=== PATIENT | male | born 1950 | race Caucasian/White ===

== ENCOUNTER → 2019-09-25 | Outpatient (CLI) | payer BC, MEDICARE ==
--- NOTE | 2019-09-25 07:35 | RAD ---
EXAM: Kwon scale and color Doppler renal artery sonogram. HISTORY: Hypertension. TECHNIQUE: Kwon scale and color Doppler sonographic imaging of the kidneys with spectral waveform analysis was performed. COMPARISON: None. FINDINGS: The kidneys are normal in size. No solid or cystic renal lesion is seen. There is no hydronephrosis. There are normal peak systolic velocities within the bilateral renal arteries, measuring 63 cm/s on the right and 99 cm/s on the left. There are normal renal artery to aorta velocity ratios. IMPRESSION: 1. Unremarkable grayscale evaluation of the kidneys. 2. No Doppler evidence of greater than 60 percent stenosis involving the renal arteries. Electronically signed by: Amy Crawley MD (09/25/2019 7:32 AM) [id number]
== END | disposition home or self-care (01) ==
LOC: US 06:28
PROVIDERS: ATTEND Family Medicine
DX: I10 Essential (primary) hypertension (principal)
CPT/HCPCS: 93975

== ENCOUNTER → 2019-10-07 | Outpatient (CLI) | payer BC, MEDICARE ==
--- NOTE | 2019-10-07 12:03 | CARD ---
MR#: [id number] Date of Study: 10/07/2019 Ordering Physician: ROCÍO FOX, Referring Physician: ROCÍO FOX, Tech: APPROVED REPORT PROCEDURE: Successful implantation of Biotronik Biomonitor III loop recorder INDICATIONS: Stroke of uncertain etiology r/o atrial fibrillation PROCEDURE DETAILS: An informed consent was obtained from patient. Patient was brought to the procedure suite and his le ft chest and shoulder were prepped and draped in the usual fashion. 20 mL of 2% lidocaine was infilt rated into the skin and subcutaneous tissues for local anesthesia. An incision was made in the left third intercostal space 1 inch from midsternal line and using the introducer/deployer provided with Qompium kit a track was created in subcutaneous tissue and a Biotronik Biomonitor III loop recorder serial number [id number] was placed in the subcutaneous tissue. The incision was closed with steristrips He mostasis was secured. Patient tolerated the procedure well. There were no immediate complications. At the end of procedure, the device showed sensing amplitude of 2 mV. CONCLUSION: Successful implantation of Biotronik Biomonitor III loop recorder for stroke of uncertain etiology to rule out any significant arrhythmias. Signed by : Rocío Fox, Electronically Approved : 10/07/2019 12:03:35
== END ==
LOC: LINQ 11:20
PROVIDERS: ATTEND Internal Medicine Cardiovascular Disease
DX: I48.91 Unspecified atrial fibrillation (principal); I63.9 Cerebral infarction, unspecified
CPT/HCPCS: 33285; C1764

== ENCOUNTER → 2020-07-21 | Day surgery (SDC) | payer BC, MEDICARE ==
[~2020-07-21] MED LIST: AMLO-187 PO; ATOR40TA PO; IV RINGERS,LACTATED 1000ML 1,000 ML IV SCH; MELO15TA6 PO; METF10007 PO; METO10TA81 PO; NAPR220T70 PO; PROPOFOL 10 MG/ML (20ML) VIAL. IV ONE; QUIN10TA15 PO
--- NOTE | 2020-07-21 13:13 | PDOC1 ---
History and Physical Date of Admission Date of Admission DATE: 07/21/20 TIME: 13:04 Identification/Chief Complaint Chief Complaint Colon cancer screening Source Source: Chart review, Patient History of Present Illness History of Present Illness 69 y/o male here for screening colonoscopy. Had colonoscopy >10 years ago; recalls "diverticulosis". Denies D, C, overt bleeding. Wt/appetite OK. No GIFH. No abdominal pain. Denies heartburn, dysphagia, PUD, or pancreatic history. H/o hepatic steatosis. No tobacco use. Usually daily alcohol in modest amounts. Has taken meloxicam. Past Medical History Cardiovascular: HTN CENTRAL NERVOUS SYSTEM: CVA (uncertain source/minimal residual) Psych: Anxiety Endocrine: Diabetes (tupe 2) Past Surgical History Past Surgical History: Other (Implantation of loop recorder) Family History Family History: Other (Father had diabetes.) Social History Smoke: No ALCOHOL: other (Some amount daily.) Drugs: None Current Medications Current Medications Current Medications Ringer's Solution 1,000 ml @ 50 mls/hr Q20H IV ; Start 07/21/20 at 12:45; Stop 07/22/20 at 00:44; Status UNV Active Scripts Active Reported Mobic (Meloxicam) 15 Mg Tablet 15 Mg PO DAILY Metformin Hcl 1,000 Mg Tablet 1,000 Mg PO DAILYWBKFT Reglan (Metoclopramide Hcl) 10 Mg Tablet 10 Mg PO QIDACHS (?) Lipitor (Atorvastatin Calcium) 40 Mg Tablet 40 Mg PO HS(?) Quinapril Hcl 10 Mg Tablet 10 Mg PO DAILY Amlodipine Besylate 10 Mg Tablet 10 Mg PO DAILY Allergies Allergies: Coded Allergies: No Known Drug Allergies (Unverified , 07/21/20) ROS Review of System Otherwise negative. Physical Exam General: Alert, Oriented X3, Cooperative, No acute distress HEENT: PERRLA, EOMI Lungs: Clear to auscultation Heart: S1S2, RRR, no gallops, no murmurs, other (loop recorder left infraclavicular area) Abdomen: Normal bowel sounds, Soft, No tenderness, No hepatosplenomegaly, No ma sses Rectal Exam: deferred (to time of procedure) Extremities: No cyanosis, No edema Skin: No significant lesion Neuro: Normal speech, Strength at 5/5 X4 ext, Normal tone, Sensation intact, Cranial nerves 3-12 NL, Reflexes 2+ Psych/Mental Status: Mental status NL, Mood NL Vitals Vitals Vital Signs Date Time Temp Pulse Resp B/P (MAP) Pulse Ox O2 Delivery O2 Flow Rate FiO2 07/21/20 12:54 62 20 97 VTE Prophylaxis Ordered VTE Prophylaxis Devices: No VTE Pharmacological Prophylaxi: No Assessment/Plan Assessment/Plan IMP: Appears historically at average risk for CRC. PLAN: Screening colonoscopy. JEWELL LEON MD Jul 21, 2020 13:13
--- NOTE | 2020-07-21 13:45 | PDOC4 ---
PROCEDURE Procedure Colonoscopy with biopsies Indication: Screening. Meds: per anesthesia Findings: REVA--normal. --'Scope advanced t cecum. Mucosa normal. Prep adequate. One diverticulum seen in transverse. 2, 2mm polyps in rectum, biopsied off. Internal hemorrhoids on retroflex. Kemi. well. IMP: Rectal polyps Diverticulosis Internal hemorrhoids. REC: Await path. Resume meds and diet. F/u in 2 weeks. JEWELL LEON MD Jul 21, 2020 13:45
[2020-07-21 14:30] VITALS: BP 178/100
--- NOTE | 2020-07-23 15:12 | PATHOLOGY ---
[facility] Accession Number: [id number] . 01 Material submitted: . rectum - RECTAL POLYP . 01 Clinical history: . COLORECTAL CANCER SCREEN COLON ABDOMINAL PAIN . 02 Diagnosis: Colorectal biopsies, rectal polyps: - Hyperplastic polyps. (TERESA:heather; 07/23/2020) [facility] 07/23/2020 1013 Local . 02 Comment: There are no adenomatous changes or evidence of malignancy. (TERESAM:heather; 07/23/2020) . 02 Electronically signed: . Wiliam Marc MD, Pathologist NPI- [id number] . 01 Gross description: . The specimen is received in formalin, labeled "Ryan Mast, rectal polyp". Received are two segments of pale dorado tissue measuring 0.3 and 0.4 cm in maximum dimensions. The specimen is submitted entirely in cassette A1. ([facility]; 07/22/2020) Q[facility]/QAC 07/22/2020 1301 Local . 02 Pathologist provided ICD-10: K62.1 . 02 CPT . 234685 Specimen Comment: A courtesy copy of this report has been sent to [phone] Specimen Comment: Report sent to Performed at: 01 [facility] [address], [place] [id number] MD Tutu Lamar MD Phone: [phone] Performed at: 02 [facility] [place] [address] [place], [place] [id number] MD Wiliam Marc MD Phone: [phone]
== END | disposition home or self-care (01) ==
LOC: ENDOS 12:25
PROVIDERS: ATTEND Internal Medicine Gastroenterology
DX: R10.9 Unspecified abdominal pain (principal); K64.0 First degree hemorrhoids; K57.30 Diverticulosis of large intestine without perforation or abscess without bleeding; K62.1 Rectal polyp; K63.89 Other specified diseases of intestine; I10 Essential (primary) hypertension; E78.00 Pure hypercholesterolemia, unspecified; M19.90 Unspecified osteoarthritis, unspecified site; K21.9 Gastro-esophageal reflux disease without esophagitis; E11.9 Type 2 diabetes mellitus without complications; I25.10 Atherosclerotic heart disease of native coronary artery without angina pectoris; N40.0 Benign prostatic hyperplasia without lower urinary tract symptoms; Z79.899 Other long term (current) drug therapy; Z79.84 Long term (current) use of oral hypoglycemic drugs; Z98.890 Other specified postprocedural states; Z20.822 Contact with and (suspected) exposure to COVID-19
CPT/HCPCS: 45380; 87426; 88305; J2704

== ENCOUNTER → 2020-11-09 | Outpatient (CLI) | payer BC, MEDICARE ==
[2020-07-21 14:30] VITALS: BP 178/100
[~2020-11-09] MED LIST changes: -IV RINGERS,LACTATED 1000ML 1,000 ML IV SCH; -PROPOFOL 10 MG/ML (20ML) VIAL. IV ONE
--- NOTE | 2020-11-09 15:41 | RAD ---
MR LUMBAR SPINE WO [id number] History: Reason: low back pain with left sided radiculopathy / Spl. Instructions: / History: Technique: Multiplanar, multi sequential MR imaging was performed of the lumbar spine. Comparison: None Findings: Moderate leftward curvature of the lumbar spine centered at L2-L3. Normal vertebral body height. No a cute fracture. Mild degenerative endplate edema L2-L3. Slight grade 1 anterolisthesis L5 on S1. Conus terminates at the normal location. No evidence of nerve root clumping. Sacral Tarlov cyst. T12-L1: Left foraminal disc protrusion. Minimal left neuroforaminal narrowing. No canal narrowing. L1-L2: Small disc bulge. No canal narrowing. Small left foraminal disc protrusion. Minimal left neur oforaminal narrowing. L2-L3: Broad-based disc bulge. Subarticular recess narrowing. No canal narrowing. Mild facet arthrop athy. Mild to moderate right neuroforaminal narrowing. Mild left neuroforaminal narrowing. L3-L4: Broad-based disc bulge. Moderate facet arthropathy. No canal narrowing. Left foraminal disc p rotrusion. Mild left neuroforaminal narrowing. L4-L5: Central disc bulge with annular fissure. Moderate facet arthropathy, left greater than right. Minimal canal narrowing. Subarticular recess narrowing. Mild left neuroforaminal narrowing. L5-S1: Anterolisthesis. Disc bulge. Advanced facet arthropathy, right greater than left. No canal na rrowing. Mild left neuroforaminal narrowing. Impression: 1. Moderate multilevel lumbar spondylosis with leftward curvature. 2. Multilevel neuroforaminal narrowing. Electronically signed by: George Block DO (11/09/2020 3:38 PM) [place] [id number]
== END ==
LOC: MRI 14:09
PROVIDERS: ATTEND Family Medicine
DX: M47.817 Spondylosis without myelopathy or radiculopathy, lumbosacral region (principal); M48.07 Spinal stenosis, lumbosacral region; M51.17 Intervertebral disc disorders with radiculopathy, lumbosacral region; M43.8X6 Other specified deforming dorsopathies, lumbar region; M48.05 Spinal stenosis, thoracolumbar region; M51.15 Intervertebral disc disorders with radiculopathy, thoracolumbar region; M43.17 Spondylolisthesis, lumbosacral region; G96.191 Perineural cyst
CPT/HCPCS: 72148

== ENCOUNTER → 2020-12-14 | Outpatient (CLI) | payer BC, MEDICARE ==
[2020-07-21 14:30] VITALS: BP 178/100
[~2020-12-14] MED LIST changes: +CHOL10004 PO; +CYAN-25 PO; +IOHEXOL 180 MG/ML 10 ML VIAL. ONE; +MAGN250T10 PO; +QUIN40TA16 PO; +methylPREDNISolone ACETATE 80 MG/ML VIAL. ONE
--- NOTE | 2020-12-14 12:39 | PDOC4 ---
Procedure Note: ICD 10 Code: ICD 10 Code: M54.16 M 48.06 M51.36 Procedure Note: Patient was consented for lumbar epidural steroid injection with fluoroscopic guidance. Risks were discussed including but not limited to: Bleeding, infection, possibility of epidural hematoma and subsequent neurological compromise, dural puncture, headaches, spinal cord and/or nerve damage, side effects of steroid medication, and poor results regarding pain control. Patient understands and wished to proceed. Procedure is lumbar epidural steroid injection under local anesthetic using yoly rile prep and drape at the L4-5 level using C-arm fluoroscopic guidance in both AP and lateral views medications injected is 120 mg Depo-Medrol +10mL preservative-free normal saline and 2 mL contrast- condition at discharge is stable patient tolerated procedure well had no complications. STEPHANIE ENCINAS MD Dec 14, 2020 12:39
--- NOTE | 2020-12-14 12:39 | PDOC1 ---
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 Patient reports is a burning aching pain this level as well. Patient reports the pain awakens him from sleep about 3 times a night does not affect his bowel bladder control or his ability to walk mostly noticeable with standing still or stand for prolonged periods or sitting for prolonged periods patient reports has had physical therapy as well as chiropractic in the past all which helped only temporarily he is taking arthritis strength Tylenol currently, which does help but only by about 40% or so patient rates his disability rating 0-10 10 me the worst is a 3 with family home responsibilities social activity occupation sexual behavior and life support activities 5 with recreational activities and 1 with self-care activities. Patient had MRI scan of the lumbar spine showing moderate multilevel lumbar spondylosis with broad-based disc bulges L2-3 L3-4 central disc bulge at L4-5 with annular fissure left greater than right facet arthropathy and subarticular recess narrowing with minimal canal narrowing mild left neuroforaminal narrowing L5-S1 shows advanced facet arthropathy right greater than left without canal narrowing with a mild left neuroforaminal narrowing. L3-4 shows left foraminal disc protrusion with mild left neuroforaminal narrowing as well. PAST MEDICAL HISTORY: PMH: Type 2 diabetes, hypertension, arthritis, esophageal reflux, subclavian artery stenosis PREVIOUS SURGERIES: Past Surgical Hx: Appendectomy CURRENT MEDICATIONS: Current Meds: Active Scripts Medications Dose Route/Sig Max Daily Dose Days Date Category Dose Instructions Magnesium (Magnesium Oxide) 250 Mg Tablet 1 Tab PO DAILY 30 12/14/20 Reported Vitamin B-12 (Cyanocobalamin (Vitamin B-12)) 1,000 Mcg Tablet 1 Tab PO DAILY 30 12/14/20 Reported Vitamin D3 (Vitamin D) 25 Mcg Tablet 50 Mcg PO DAILY 12/14/20 Reported 1,000 UNITS = 25 MCG Quinapril Hcl 40 Mg Tablet 1 Tab PO DAILY 30 12/14/20 Reported Mobic (Meloxicam) 15 Mg Tablet 15 Mg PO DAILY 07/21/20 Reported Metformin Hcl 1,000 Mg Tablet 1,000 Mg PO BID 07/21/20 Reported Reglan (Metoclopramide Hcl) 10 Mg Tablet 10 Mg PO QIDACHS 07/21/20 Reported Amlodipine Besylate 10 Mg Tablet 10 Mg PO DAILY 07/21/20 Reported ALLERGIES; Allergies: Coded Allergies: No Known Drug Allergies (Unverified , 07/21/20) FAMILY HISTORY: Family Hx: Heart disease SOCIAL HISTORY: Social Hx: Patient drinks 3-4 beers maybe 3-4 times a week does not smoke says any illegal illicit or recreational drugs does use chewing tobacco is lives with his spouse and a stepson who is living with him he is currently retired from [employer]. REVIEW OF SYSTEMS: ROS: Positive for those items mentioned in history of present illness, all systems are reviewed, otherwise negative ,and are complete full and well-documented on patient's chart. PHYSICAL EXAM: VS: Blood pressure is 137/87 pulse 59 respiration 16 temperature 97.9 F height is 5 foot 11 inches weight is 167 pounds PE: PHYSICAL EXAMINATION: GENERAL: The patient is awake, alert, oriented, appropriate, very pleasant in demeanor. HEENT: Shows normocephalic, atraumatic. Extraocular movements are intact and symmetrical. Oral cavity: Mucous membranes moist and pink. Dentition is intact. NECK: Shows anterior throat supple without palpable lymphadenopathy noted. Swallow reflex symmetrical. CHEST: Shows normal on inspection. Breath sounds are clear bilaterally, no rales rhonchi or wheezes auscultated. HEART: Shows S1, S2 clear. No murmurs auscultated. ABDOMEN: Soft, nontender, nondistended. No palpable organomegaly is noted. BACK: Shows spine grossly in the midline. Normal-appearing cervical lordotic curvature. There is slightly increased thoracic kyphosis, some flattening of the lumbar lordotic curvature. Lumbar paraspinous muscles show symmetrical on inspection, on palpation shows some moderate tenderness diffusely throughout the upper, middle and lower distribution of the paraspinous muscles bilaterally and also into the lower thoracic paraspinous musculature, firm and tender, but without specific trigger points, without radiation of pain. The patient has goo d rotational motion of the lumbar spine, both laterally as well as extension and flexion without significant difficulty. No tenderness over the spinous processes, sacrum or sacroiliac regions. EXTREMITIES: Lower extremities show deep tendon reflexes 2+ in the patellar and tendo calcaneus tendons. Motor exam is 5 on a scale of 5 with right dorsiflexion, extension, quadriceps and hamstring flexion and 5/5 on the left. Peripheral pulses are 1+ posterior tibial. No peripheral edema is noted bilaterally. Lower extremities are warm and dry to touch, equal in color and appearance. Straight leg raise noted to be negative bilaterally. Gaenslen's and Jim's maneuvers are negative bilateral as well. The patient is able to stand, stand on his toes that significant difficulty loss of balance, walks with a normal-appearing gait some appear to favor the right or left lower extremity significantly is not use any assistive devices to ambulate. SKIN: Shows warm and dry, good turgor. No edema. No sores, rashes or bruising throughout. IMPRESSION: Impression: 70-year-old male with long history approximately 3 years increasing pain low back right lower extremity radicular fashion MRI scan lumbar spine as noted Hypertension Arthritis Type 2 diabetes Plan: Discussed with the patient including conservative management continued physical therapies and interventional techniques. Patient would like to pursue interventional techniques. We discussed a lumbar epidural steroid injections description as well as anatomical models to describe the procedure. Risks were discussed including but not limited to: Bleeding, infection, possibility of epidural hematoma and subsequent neurological compromise, dural puncture, headaches, spinal cord and/or nerve damage, side effects of steroid medication, and poor results regarding pain control. Patient understands and wished to proceed. Patient will return to clinic in approximately 2 weeks for follow-up, was counseled to return appointment, typical, and side effects to be aware of. Procedure is lumbar epidural steroid injection under local anesthetic using sterile prep and drape at the L4-5 level using C-arm fluoroscopic guidance in both AP and lateral views medications injected is 120 mg Depo-Medrol +10mL preservative-free normal saline and 2 mL contrast- condition at discharge is stable patient tolerated procedure well had no complications. STEPHANIE ENCINAS MD Dec 14, 2020 12:39
== END | disposition home or self-care (01) ==
LOC: PNCL 10:16
PROVIDERS: ATTEND Anesthesiology
DX: M51.16 Intervertebral disc disorders with radiculopathy, lumbar region (principal); M48.061 Spinal stenosis, lumbar region without neurogenic claudication; M79.604 Pain in right leg; I10 Essential (primary) hypertension; E11.9 Type 2 diabetes mellitus without complications; M19.90 Unspecified osteoarthritis, unspecified site; K21.9 Gastro-esophageal reflux disease without esophagitis; I25.10 Atherosclerotic heart disease of native coronary artery without angina pectoris; E78.00 Pure hypercholesterolemia, unspecified; N40.0 Benign prostatic hyperplasia without lower urinary tract symptoms; Z79.84 Long term (current) use of oral hypoglycemic drugs; Z79.899 Other long term (current) drug therapy; Z98.890 Other specified postprocedural states; Z72.89 Other problems related to lifestyle
CPT/HCPCS: 62323; J1040; Q9965; 62322

== ENCOUNTER → 2021-03-03 | Outpatient (CLI) | payer BC, MEDICARE ==
[2020-07-21 14:30] VITALS: BP 178/100
[~2021-03-03] MED LIST changes: +methylPREDNISolone ACETATE 40 MG/ML VIAL. ONE
--- NOTE | 2021-03-03 10:56 | PDOC ---
Progress Note - Pain Clinic Date of Service: DOS: DATE: 03/03/21 TIME: 10:53 Diagnosis: Dx: Lumbar radiculopathy with lumbar degenerative disease and lumbar spondylosis History or Present Illness: HPI: 70-year-old male returns in follow-up status post lumbar epidural steroid injection x1 last seen December 14, 2020. Patient reports by 90% improvement for the first month or so the pain returning gradually in the low back and right lower extremity patient reports his right posterior gluteus lateral thigh anterior thigh medial thigh and across the low back patient reports a 7 on scale 10 is worse over the past week 7 on average 5 its least is a 7 today patient reports aching burning constant can be unbearable with standing walking for prolonged periods patient reports also new finding of right shoulder pain posteriorly coming up in about the past 2 months or so not the result of any injury or accident that he is aware but very significant pain in the right posterior shoulder patient is been putting heat on it and stretching but without significant decrease in pain. Patient reports better at night in both areas of the low back and the right shoulder and does not generally awaken her from sleep at night. Patient reports no bowel or bladder incontinence. Physical Exam: VS: Blood pressure is 144/83 pulse 59 respirations 18 temperature 97 F is 5 feet 11 inches weight is 182 pounds PE: PHYSICAL EXAMINATION: GENERAL: The patient is awake, alert, oriented, appropriate, very pleasant in demeanor HEENT: Shows normocephalic, atraumatic. Extraocular movements are intact and symmetrical. Oral cavity: Mucous membranes moist and pink. Dentition is intact. NECK: Shows anterior throat supple without palpable lymphadenopathy noted. S wallow reflex symmetrical. CHEST: Shows normal on inspection. Breath sounds are clear bilaterally, distant no rales rhonchi wheezes auscultated. HEART: Shows S1, S2 clear. No murmurs auscultated. ABDOMEN: Soft, nontender, nondistended. No palpable organomegaly is noted. No rebound or guarding demonstrated. BACK: Shows spine grossly in the midline. Normal-appearing cervical lordotic curvature. There is slightly increased thoracic kyphosis, some minor flattening of the lumbar lordotic curvature. Lumbar paraspinous muscles show symmetrical on inspection, on palpation shows some moderate tenderness diffusely throughout the upper, middle and lower distribution of the paraspinous muscles without specific trigger points, without radiation of pain. The patient has good rotational motion of the lumbar spine, both laterally as well as extension and flexion without significant difficulty. EXTREMITIES: Lower extremities show deep tendon reflexes 2+ in the patellar and tendo calcaneus tendons. Motor exam is 5 on a scale of 5 with right dorsiflexion, extension, quadriceps and hamstring flexion and 5/5 on the left. Peripheral pulses are 1+ posterior tibial. No peripheral edema is noted bilaterally. Lower extremities are warm and dry to touch, equal in color and appearance. Patient's right shoulder shows significant tenderness in the rhomboid distribution as well as the inferior aspect of the scapular margin as well as in first capsular musculature and some in the inferior aspect of the trapezius laterally on the right as well with very firm ropelike musculature but without radiation. Left side is nontender. Shoulders show full rotation motion bilaterally. SKIN: Shows warm and dry, good turgor. No edema. No sores, rashes or bruising throughout. Procedure: Procedure: Options were discussed with patient. Patient chart was reviewed his current medication regimen updated current review of systems updated today as well. We will proceed with a lumbar epidural steroid injection today with fluoroscopic guidance. Risks were discussed including but not limited to: Bleeding, infection, possibility of epidural hematoma and subsequent neurological compromise, dural puncture, headaches, spinal cord and/or nerve damage, side effects of steroid medication, and poor results regarding pain control. Patient understands and wished to proceed. Patient will return to the clinic in approximately 4 weeks for follow-up, was counseled as to return appointment, activity level, and side effect to be aware of. Medication Injected: Med Injected: Procedure is lumbar epidural steroid injection under local anesthetic using sterile prep and drape at the L4-5 level using C-arm fluoroscopic guidance in both AP and lateral views medications injected is 120 mg Depo-Medrol +10mL preservative-free normal saline and 2 mL contrast- condition at discharge is st able patient tolerated procedure well had no complications. Condition at Discharge: Condition at Discharge: Condition at discharge stable, patient Estuardo the procedure well and had no complications. STEPHANIE ENCINAS MD Mar 03, 2021 10:56
--- NOTE | 2021-03-03 10:57 | PDOC4 ---
Procedure Note: ICD 10 Code: ICD 10 Code: M51.16 M51.36 7.816 Procedure Note: Patient was consented for lumbar epidural steroid injection with fluoroscopic guidance. Risks were discussed including but not limited to: Bleeding, infection, possibility of epidural hematoma and subsequent neurological compromise, dural puncture, headaches, spinal cord and/or nerve damage, side effects of steroid medication, and poor results regarding pain control. Patient understands and wished to proceed. Procedure is lumbar epidural steroid injection under local anesthetic using st erile prep and drape at the L4-5 level using C-arm fluoroscopic guidance in both AP and lateral views medications injected is 120 mg Depo-Medrol +10mL preservative-free normal saline and 2 mL contrast- condition at discharge is stable patient tolerated procedure well had no complications. STEPHANIE ENCINAS MD Mar 03, 2021 10:57
== END | disposition home or self-care (01) ==
LOC: PNCL 09:29
PROVIDERS: ATTEND Anesthesiology
DX: M51.16 Intervertebral disc disorders with radiculopathy, lumbar region (principal); M47.26 Other spondylosis with radiculopathy, lumbar region; I25.10 Atherosclerotic heart disease of native coronary artery without angina pectoris; I10 Essential (primary) hypertension; E78.00 Pure hypercholesterolemia, unspecified; E11.9 Type 2 diabetes mellitus without complications; K21.9 Gastro-esophageal reflux disease without esophagitis; M19.90 Unspecified osteoarthritis, unspecified site; N40.0 Benign prostatic hyperplasia without lower urinary tract symptoms; Z86.73 Personal history of transient ischemic attack (TIA), and cerebral infarction without residual deficits; Z79.899 Other long term (current) drug therapy; Z98.890 Other specified postprocedural states; Z72.89 Other problems related to lifestyle
CPT/HCPCS: 62323; J1030; J1040; Q9965